=== PATIENT | female | born 1975 | race American Indian/Alaskan Native ===

== ENCOUNTER 2019-02-23 14:25 | Emergency (ER) | payer SELFPAY ==
--- NOTE | 2019-02-23 14:30 | Emergency Department Report ---
Blank Doc - Documentation Documentation: This is a 43-year-old female that presents with nausea vomiting and abdominal pain. This initial assessment/diagnostic orders/clinical plan/treatment(s) is/are subject to change based on patient's health status, clinical progression and re- assessment by fellow clinical providers in the ED. Further treatment and workup at subsequent clinical providers discretion. Patient/guardians urged not to elope from the ED as their condition may be serious if not clinically assessed and managed. Initial orders include: 1- Patient sent to [facility] for further evaluation and treatment 2- labs 3- UA
[2019-02-23 14:31] VITALS: BP 148/80
[2019-02-23 15:36] LABS: Basophils % (Auto) 0.8 % (0.0-1.8); Eosinophils # (Auto) 0.1 K/mm3 (0.0-0.4); Eosinophils % (Auto) 1.3 % (0.0-4.3); Hematocrit 43.8 % (30.3-42.9); Hemoglobin 14.7 gm/dl (10.1-14.3); Lymphocytes # (Auto) 1.7 K/mm3 (1.2-5.4); Lymphocytes % (Auto) 26.5 % (13.4-35.0); Mean Corpuscular HGB Conc 34 % (30-34); Mean Corpuscular Volume 94 fl (79-97); Monocytes # (Auto) 0.3 K/mm3 (0.0-0.8); Monocytes % (Auto) 5.5 % (0.0-7.3); Platelet Count 154 K/mm3 (140-440); Red Blood Count 4.69 M/mm3 (3.65-5.03); Red Cell Distribution Width 13.4 % (13.2-15.2)
[2019-02-23] MEDS ORDERED: ZOFRAN ODT PO ONE (15:39)
--- NOTE | 2019-02-23 15:42 | Emergency Department Report ---
HPI - General Chief Complaint: Abdominal Pain Time Seen by Provider: 02/23/19 14:29 - HPI HPI: Patient is a pleasant 43-year-old female who comes in with fatigue. She states it is been going on for months but it's just to the point that she wanted lanie koehler. Patient denies chest pain shortness of breath, nausea vomiting, diarrhea, constipation or fever. No swelling. There are no identifiable triggers that make her feel better or worse. Patient is well dressed here with family. She does not have a primary care. She lives in [facility] and usually sees the [facility] at [facility]. She is on no home medications. Has no medical pr Denies The only time the patient reports being sick is during her when she had high blood pressure and some heart problems. She cannot tell me the details of this for this was over 20 years ago. No Alcohol or drugs or cigarettes. Has had no surgeries. Patient is still having normal menses. ED Past Medical Hx - Past Medical History Previous Medical History?: No - Surgical History Past Surgical History?: No - Family History Family history: no significant - Social History Smoking Status: Never Smoker Substance Use Type: None ED Review of Systems ROS: Stated complaint: UPSET STOMACH/DIARRHEA Other details as noted in HPI Comment: All other systems reviewed and negative Constitutional: denies: chills, fever Cardiovascular: denies: chest pain Gastrointestinal: denies: nausea, vomiting Skin: denies: rash, lesions Neurological: denies: headache Psychiatric: denies: anxiety Hematological/Lymphatic: denies: easy bleeding Physical Exam - Physical Exam Vital Signs: Vital Signs 02/23/19 14:29 Temperature 97.9 F Pulse Rate 47 L Respiratory 18 Rate Blood Pressure 148/80 O2 Sat by Pulse 100 Oximetry General: Head Head exam: Present: atraumatic, normocephalic - Eye Eye exam: Present: normal appearance, EOMI. Absent: nystagmus - ENT ENT exam: Present: normal exam, normal orophraynx, mucous membranes moist, normal external ear exam, no lymphadenopathy - Neck Neck exam: Present: normal inspection, full ROM. Absent: tenderness, meningismus - Respiratory Respiratory exam: Present: normal lung sounds bilaterally. Absent: respiratory distress, wheezes, rales, rhonchi, stridor, chest wall tenderness, accessory muscle use, decreased breath sounds, prolonged expiratory - Cardiovascular Cardiovascular Exam: Present: regular rate, normal rhythm, normal heart sounds. Absent: bradycardia, tachycardia, irregular rhythm, systolic murmur, diastolic murmur, rubs, gallop, JVD, edema - GI/Abdominal GI/Abdominal exam: Present: soft, non tender on light and deep palpation. Absent: distended, tenderness, guarding, rebound, rigid, pulsatile mass - Rectal Rectal exam: Present: deferred - Extremities Exam Extremities exam: Present: normal inspection, full ROM, other (2+ pulses noted in the bilateral upper extremities. Bilateral lower extremities with 2+ DP bilateral. Full ROM. Absent: calf tenderness - Back Exam Back exam: Present: normal inspection, full ROM. Absent: tenderness, CVA tenderness (R), CVA tenderness (L), paraspinal tenderness, vertebral tenderness - Neurological Exam Neurological exam: Present: alert, oriented X3, normal gait, other (Extraocular movements intact. Tongue midline. No facial droop. Facial sensation intact to light touch in the V1, V2, V3 distribution bilaterally. 5 and 5 strength in 4 extremities.. Sensation is intact to light touch in 4 extremities.). Absent: motor sensory deficit - Psychiatric Psychiatric exam: normal affect and mood - Skin Skin exam: Present: warm, dry, intact, normal color. Absent: rash ED Course Vital Signs 02/23/19 14:29 Temperature 97.9 F Pulse Rate 47 L Respiratory 18 Rate Blood Pressure 148/80 O2 Sat by Pulse 100 Oximetry ED Medical Decision Making - Lab Data Result diagrams: 02/23/19 15:14 02/23/19 15:14 - EKG Data -: EKG Interpreted by Ms EKG shows normal: sinus rhythm Rate: bradycardia - EKG Data Interpretation: no acute changes - Medical Decision Making Vital Signs 02/23/19 14:29 Temperature 97.9 F Pulse Rate 47 L Respiratory 18 Rate Blood Pressure 148/80 O2 Sat by Pulse 100 Oximetry Lab Results 02/23/19 02/23/19 02/23/19 Range/Units 15:14 15:14 15:14 WBC 6.3 (4.5-11.0) K/mm3 RBC 4.69 (3.65-5.03) M/mm3 Hgb 14.7 H (10.1-14.3) gm/dl Hct 43.8 H (30.3-42.9) % MCV 94 (79-97) fl MCH 31 (28-32) pg MCHC 34 (30-34) % RDW 13.4 (13.2-15.2) % Plt Count 154 (140-440) K/mm3 Lymph % (Auto) 26.5 (13.4-35.0) % [place] % (Auto) 5.5 (0.0-7.3) % Eos % (Auto) 1.3 (0.0-4.3) % Baso % (Auto) 0.8 (0.0-1.8) % Lymph # 1.7 (1.2-5.4) K/mm3 [place] # 0.3 (0.0-0.8) K/mm3 Eos # 0.1 (0.0-0.4) K/mm3 Baso # 0.0 (0.0-0.1) K/mm3 Seg Neutrophils % 65.9 (40.0-70.0) % Seg Neutrophils # 4.2 (1.8-7.7) K/mm3 Sodium 140 (137-145) mmol/L Potassium 4.3 (3.6-5.0) mmol/L Chloride 103.0 (98-107) mmol/L Carbon Dioxide 25 (22-30) mmol/L Anion Gap 16 mmol/L BUN 7 (7-17) mg/dL Creatinine 0.6 L (0.7-1.2) mg/dL Estimated GFR > 60 ml/min BUN/Creatinine Ratio 12 % Glucose 103 H (65-100) mg/dL Calcium 9.7 (8.4-10.2) mg/dL Total Bilirubin 0.30 (0.1-1.2) mg/dL Direct Bilirubin Not Reportable Indirect Bilirubin 0.1 mg/dL AST 19 (5-40) units/L ALT 8 (7-56) units/L Alkaline Phosphatase 63 (35-129) units/L Troponin T (0.00-0.029) ng/mL Total Protein 7.6 (6.3-8.2) g/dL Albumin 4.5 (3.9-5) g/dL Albumin/Globulin Ratio 1.5 % Lipase 14 (13-60) units/L TSH (0.270-4.200) mlU/mL HCG, Qual Negative (Negative) Urine Color (Yellow) Urine Turbidity (Clear) Urine pH (5.0-7.0) Ur Specific [place] (1.003-1.030) Urine Protein (Negative) mg/dL Urine Glucose (UA) (Negative) mg/dL Urine Ketones (Negative) mg/dL Urine Blood (Negative) Urine Nitrite (Negative) Urine Bilirubin (Negative) Urine Urobilinogen (<2.0) mg/dL Ur Leukocyte Esterase (Negative) Urine WBC (Auto) (0.0-6.0) /HPF Urine RBC (Auto) (0.0-6.0) /HPF U Epithel Cells (Auto) (0-13.0) /HPF 02/23/19 02/23/19 02/23/19 Range/Units 16:11 16:11 Unknown WBC (4.5-11.0) K/mm3 RBC (3.65-5.03) M/mm3 Hgb (10.1-14.3) gm/dl Hct (30.3-42.9) % MCV (79-97) fl MCH (28-32) pg MCHC (30-34) % RDW (13.2-15.2) % Plt Count (140-440) K/mm3 Lymph % (Auto) (13.4-35.0) % [place] % (Auto) (0.0-7.3) % Eos % (Auto) (0.0-4.3) % Baso % (Auto) (0.0-1.8) % Lymph # (1.2-5.4) K/mm3 [place] # (0.0-0.8) K/mm3 Eos # (0.0-0.4) K/mm3 Baso # (0.0-0.1) K/mm3 Seg Neutrophils % (40.0-70.0) % Seg Neutrophils # (1.8-7.7) K/mm3 Sodium (137-145) mmol/L Potassium (3.6-5.0) mmol/L Chloride (98-107) mmol/L Carbon Dioxide (22-30) mmol/L Anion Gap mmol/L BUN (7-17) mg/dL Creatinine (0.7-1.2) mg/dL Estimated GFR ml/min BUN/Creatinine Ratio % Glucose (65-100) mg/dL Calcium (8.4-10.2) mg/dL Total Bilirubin (0.1-1.2) mg/dL Direct Bilirubin Indirect Bilirubin mg/dL AST (5-40) units/L ALT (7-56) units/L Alkaline Phosphatase (35-129) units/L Troponin T < 0.010 (0.00-0.029) ng/mL Total Protein (6.3-8.2) g/dL Albumin (3.9-5) g/dL Albumin/Globulin Ratio % Lipase (13-60) units/L TSH 1.720 (0.270-4.200) mlU/mL HCG, Qual (Negative) Urine Color Straw (Yellow) Urine Turbidity Clear (Clear) Urine pH 6.0 (5.0-7.0) Ur Specific [place] 1.004 (1.003-1.030) Urine Protein <15 mg/dl (Negative) mg/dL Urine Glucose (UA) Neg (Negative) mg/dL Urine Ketones Neg (Negative) mg/dL Urine Blood Sm (Negative) Urine Nitrite Neg (Negative) Urine Bilirubin Neg (Negative) Urine Urobilinogen < 2.0 (<2.0) mg/dL Ur Leukocyte Esterase Neg (Negative) Urine WBC (Auto) 1.0 (0.0-6.0) /HPF Urine RBC (Auto) 1.0 (0.0-6.0) /HPF U Epithel Cells (Auto) 2.0 (0-13.0) /HPF I myself checked the patient's heart rate on numerous occasions and it has been in the 50s during her stay here in the ER. TSH is normal. Twelve-lead EKG with no acute changes. Patient denies any chest pain or shortness of breath. She is still having regular. She has no family history of heart disease. Other labs are all normal including her UA. I've had a long discussion with the patient about the findings of her workup today. In the context of her fatigue I cannot say that it is not related to her heart rate. Patient does have an appointment already set up in the pot at [facility]. She is to call them in the morning to see if they can move her appointment up for it is mid February. Patient is being discharged home with detailed instructions. She is going home with a family member. She is reliable for follow-up. She has been instructed to return to the ER if has worsening symptoms. On discharge and provider assessment heart rate 55 and patient states that she feels better knowing that there is nothing seriously wrong. - Differential Diagnosis ro anemia; ro fatiuge due to bradycardia; ro uti; ro preg Critical care attestation.: If time is entered above; I have spent that time in minutes in the direct care of this critically ill patient, excluding procedure time. ED Disposition Clinical Impression: Bradycardia, Fatigue Disposition: DC- TO HOME OR SELFCARE Is pt being admited?: No Does the pt Need Aspirin: No Condition: Stable Instructions: Bradycardia (ED) Additional Instructions: FOLLOW UP AT [facility] WE DISCUSSED Referrals: KATHLEEN HUDSON MD [Primary Care Provider] - 3-5 Days [facility] [Outside] - 3-5 Days Forms: Work/School Release Form(ED) Time of Disposition: 18:00
[2019-02-23 15:47] LABS: Bilirubin,Urine NEG (Negative); Blood,Urine SM (Negative); Color,Urine Straw (Yellow); Protein,Urine <15 mg/dL mg/dL (Negative); Urobilinogen,Urine < 2.0 mg/dL (<2.0)
[2019-02-23 15:55] LABS: BUN/Creatinine Ratio 12; Blood Urea Nitrogen 7 mg/dL (7-17); Calcium 9.7 mg/dL (8.4-10.2)
[2019-02-23 15:56] LABS: Alanine Aminotransferase 8 units/L (7-56); Albumin 4.5 g/dL (3.9-5); Hemolysis Index 7
== END 2019-02-23 18:17 | disposition home or self-care (01) ==
LOC: ED 14:25
DX: R00.1 Bradycardia, unspecified (principal)
CPT/HCPCS: 36415; 80048; 80076; 81001; 83690; 84443; 84484; 84703; 85025; 93005; 93010; 99283; Q0162

== ENCOUNTER 2019-02-26 14:07 | Emergency (ER) | payer OTHER ==
--- NOTE | 2019-02-26 15:26 | Emergency Department Report ---
Blank Doc - Documentation Documentation: 43 y o female presents to Ed cc of chest pain and dizziness x today
[2019-02-26 15:51] LABS: Basophils # (Auto) 0.1 K/mm3 (0.0-0.1); Basophils % (Auto) 1.1 % (0.0-1.8); Eosinophils # (Auto) 0.3 K/mm3 (0.0-0.4); Eosinophils % (Auto) 4.5 % (0.0-4.3); Hematocrit 44.1 % (30.3-42.9); Hemoglobin 15.1 gm/dl (10.1-14.3); Lymphocytes % (Auto) 33.7 % (13.4-35.0); Mean Corpuscular HGB Conc 34 % (30-34); Mean Corpuscular Volume 93 fl (79-97); Monocytes # (Auto) 0.3 K/mm3 (0.0-0.8); Monocytes % (Auto) 5.8 % (0.0-7.3); Platelet Count 164 K/mm3 (140-440); Red Blood Count 4.74 M/mm3 (3.65-5.03); Red Cell Distribution Width 13.6 % (13.2-15.2)
[2019-02-26 16:12] LABS: BUN/Creatinine Ratio 12; Blood Urea Nitrogen 7 mg/dL (7-17); Calcium 9.8 mg/dL (8.4-10.2); Hemolysis Index 7
--- NOTE | 2019-02-26 16:19 | Emergency Department Report ---
ED Chest Pain HPI - General Chief Complaint: Chest Pain Stated Complaint: DISORIENTED Time Seen by Provider: 02/26/19 14:40 Source: patient Mode of arrival: Ambulatory Limitations: No Limitations - History of Present Illness Initial Comments: Patient is 43 years old female with no significant past medical history. Patient presented to the ER complaining of chest pain, tightness with no radiation. Patient stated that just started 2 hours ago and associated with dizziness. Patient denied any shortness of breath, nausea or vomiting. No fever chills or cough. Patient was seen here one week ago and evaluated for abdominal pain and workup was unremarkable. MD Complaint: chest pain -: hour(s) Onset: during rest Pain Location: left chest Quality: tightness Consistency: intermittent - Related Data Allergies Allergy/AdvReac Type Severity Reaction Status Date / Time No Known Allergies Allergy Verified 02/26/19 14:08 Heart Score - HEART Score History: Slightly suspicious EKG: Non-specific Age: < 45 Risk factors: No known risk factors Troponin: < normal limit HEART Score: 1 - Critical Actions Critical Actions: 0-3 pts:0.9-1.7%risk of adverse cardiac event.Candidate for discharge ED Review of Systems ROS: Stated complaint: DISORIENTED Other details as noted in HPI Comment: All other systems reviewed and negative Constitutional: denies: chills, fever Respiratory: denies: cough, orthopnea Cardiovascular: chest pain Gastrointestinal: denies: abdominal pain, nausea, vomiting, diarrhea, constipation, hematemesis, melena, hematochezia Musculoskeletal: denies: back pain Neurological: weakness (generalized). denies: headache, numbness, paresthesias, confusion ED Past Medical Hx - Past Medical History Previous Medical History?: No - Surgical History Past Surgical History?: No - Social History Smoking Status: Never Smoker Substance Use Type: None ED Physical Exam - General Limitations: No Limitations General appearance: alert, in no apparent distress - Head Head exam: Present: atraumatic, normocephalic, normal inspection - Eye Eye exam: Present: normal appearance, PERRL - ENT ENT exam: Present: normal exam, normal orophraynx, mucous membranes moist - Neck Neck exam: Present: normal inspection, full ROM. Absent: tenderness, meningismus, lymphadenopathy, thyromegaly - Respiratory Respiratory exam: Present: normal lung sounds bilaterally - Cardiovascular Cardiovascular Exam: Present: regular rate, bradycardia, normal heart sounds - GI/Abdominal GI/Abdominal exam: Present: soft, normal bowel sounds. Absent: distended, tenderness, guarding, rebound, rigid, organomegaly, mass, bruit, pulsatile mass, hernia - Extremities Exam Extremities exam: Present: normal inspection, full ROM, normal capillary refill. Absent: pedal edema, calf tenderness - Back Exam Back exam: Present: normal inspection, full ROM. Absent: CVA tenderness (R), CVA tenderness (L), muscle spasm, paraspinal tenderness, vertebral tenderness - Neurological Exam Neurological exam: Present: alert, oriented X3, CN II-XII intact, normal gait, reflexes normal - Skin Skin exam: Present: warm, intact, normal color ED Course Vital Signs 02/26/19 02/26/19 02/26/19 14:42 16:18 16:19 Temperature 97.9 F 98.0 F Pulse Rate 60 54 L Respiratory 18 15 16 Rate Blood Pressure 121/83 Blood Pressure 103/76 [Left] O2 Sat by Pulse 98 98 98 Oximetry 02/26/19 02/26/19 18:00 20:19 Temperature Pulse Rate 52 L 53 L Respiratory 14 17 Rate Blood Pressure Blood Pressure 114/56 114/58 [Left] O2 Sat by Pulse 100 99 Oximetry ED Medical Decision Making - Lab Data Result diagrams: 02/26/19 15:33 02/26/19 15:33 - EKG Data -: EKG Interpreted by [place] EKG shows normal: sinus rhythm Rate: bradycardia - EKG Data Interpretation: no acute changes - Radiology Data Radiology results: report reviewed Chest x-ray is unremarkable. - Medical Decision Making Patient is 43 years old female with no significant past medical history. Patient presented to the ER complaining of chest pain, tightness with no radiation. Patient stated that just started 2 hours ago and associated with dizziness. Patient denied any shortness of breath, nausea or vomiting. No fever chills or cough. Patient was seen here one week ago and evaluated for abdominal pain and workup was unremarkable. Patient EKG showed sinus bradycardia. No ST elevation. Chest x-ray is unremarkable. 2 sets of troponin is negative. Patient improved significantly after fluids. Patient advised to follow-up with [facility] due to 3 days for further workup. She'll also advised to return to the ER if symptoms are not improved. Critical care attestation.: If time is entered above; I have spent that time in minutes in the direct care of this critically ill patient, excluding procedure time. ED Disposition Clinical Impression: Bradycardia, Chest pain Disposition: DC-01 TO HOME OR SELFCARE Is pt being admited?: No Condition: Stable Instructions: Chest Pain (ED), Bradycardia (ED) [facility] - 3-5 Days
[2019-02-26] MEDS ORDERED: NACL 0.9% 1000 ML 1,000 ML ONE (16:33)
--- NOTE | 2019-02-26 16:36 | XRay Report ---
PROCEDURE: XR CHEST ROUTINE 2V TECHNIQUE: PA and lateral chest radiographs were obtained. HISTORY: Chest Pain COMPARISONS: None. FINDINGS: Heart: Normal. Mediastinum/Vessels: Normal. Lungs/Pleural space: Normal. Bony thorax: No acute osseous abnormality. IMPRESSION: Normal examination. This document is electronically signed by Jono Gatica MD., February 26 2019 05:34:50 PM ET
[2019-02-26] MEDS ORDERED: NACL 0.9% 1000 ML 1,000 ML IV ONE (16:41)
[2019-02-26 16:58] LABS: Amphetamine Screen,Urine PRESUMPTIVE NEGATIVE; Benzodiazepines Screen,Urine PRESUMPTIVE NEGATIVE; Cocaine Screen,Urine PRESUMPTIVE NEGATIVE; Methadone Screen,Urine PRESUMPTIVE NEGATIVE; Opiate Screen,Urine PRESUMPTIVE NEGATIVE
[2019-02-26 17:15] LABS: Cannabinoid Screen,Urine PRESUMPTIVE POSITIVE
[2019-02-26 20:20] VITALS: BP 114/58
== END 2019-02-26 20:19 | disposition home or self-care (01) ==
LOC: ED 14:07
DX: R07.89 Other chest pain (principal); R00.1 Bradycardia, unspecified; R42 Dizziness and giddiness
CPT/HCPCS: 36415; 71046; 80048; 80307; 84484; 84703; 85025; 93005; 93010; 96360; 96361; 99283; J7030

== ENCOUNTER 2019-03-16 09:49 | Emergency (ER) | payer SELFPAY ==
[2019-03-16] MEDS ORDERED: NACL 0.9% 1000 ML 1,000 ML IV ONE (10:07)
[2019-03-16] MEDS ORDERED: ZOFRAN ODT PO ONE (10:07)
[2019-03-16] MEDS ORDERED: ZOFRAN ODT ONE (10:10)
[2019-03-16 10:11] LABS: Basophils # (Auto) 0.1 K/mm3 (0.0-0.1); Basophils % (Auto) 0.9 % (0.0-1.8); Eosinophils # (Auto) 0.1 K/mm3 (0.0-0.4); Eosinophils % (Auto) 0.8 % (0.0-4.3); Hematocrit 44.9 % (30.3-42.9); Hemoglobin 15.6 gm/dl (10.1-14.3); Mean Corpuscular HGB Conc 35 % (30-34); Mean Corpuscular Volume 92 fl (79-97); Monocytes # (Auto) 0.6 K/mm3 (0.0-0.8); Monocytes % (Auto) 6.2 % (0.0-7.3); Platelet Count 185 K/mm3 (140-440); Red Blood Count 4.89 M/mm3 (3.65-5.03); Red Cell Distribution Width 13.6 % (13.2-15.2)
[2019-03-16] MEDS ORDERED: ZOFRAN IV ONE (10:19)
[2019-03-16] MEDS ORDERED: DILAUDID IV ONE (10:19)
--- NOTE | 2019-03-16 10:22 | Emergency Department Report ---
ED Abdominal Pain HPI - General Chief Complaint: Abdominal Pain Stated Complaint: ABDOMINAL PAIN Time Seen by Provider: 03/16/19 10:19 Source: patient Mode of arrival: Ambulatory Limitations: No Limitations - History of Present Illness Initial Comments: This is a 43-year-old -[place] female who presents to the ED with severe periumbilical abdominal pain, 9 out of 10, sharp, without radiation. Symptoms started this morning and is accompanied by nausea and vomiting. Denies any fever, chills or night sweats. Patient has not taking any medications for her symptoms. Denies any prior episodes of such symptoms. Denies any alleviating or exacerbating factors. MD Complaint: abdominal pain -: Sudden Time: 07:00 Location: diffuse Radiation: none Migration to: no migration Severity scale (0 -10): 10 Quality: stabbing Consistency: constant Improves With: nothing Worsens With: nothing Associated Symptoms: nausea, vomiting, diarrhea. denies: fever - Related Data LMP Date: 02/22/19 Home Medications Medication Instructions Recorded Confirmed Last Taken No Known Home Medications [No 03/16/19 03/16/19 Unknown Reported Home Medications] Allergies Allergy/AdvReac Type Severity Reaction Status Date / Time No Known Allergies Allergy Verified 03/16/19 09:50 ED Review of Systems ROS: Stated complaint: ABDOMINAL PAIN Other details as noted in HPI Comment: All other systems reviewed and negative Constitutional: denies: chills ENT: denies: ear pain Cardiovascular: denies: chest pain Gastrointestinal: abdominal pain, nausea, vomiting Genitourinary: denies: urgency ED Past Medical Hx - Past Medical History Previous Medical History?: No - Surgical History Past Surgical History?: No - Family History Family history: hypertension - Social History Smoking Status: Never Smoker Substance Use Type: None - Medications Home Medications: Home Medications Medication Instructions Recorded Confirmed Last Taken Type No Known Home Medications [No 03/16/19 03/16/19 Unknown History Reported Home Medications] ED Physical Exam - General Limitations: No Limitations General appearance: alert, in no apparent distress - Head Head exam: Present: atraumatic, normocephalic - Eye Eye exam: Present: normal appearance, PERRL, EOMI - ENT ENT exam: Present: normal exam, normal orophraynx - Neck Neck exam: Present: normal inspection - Respiratory Respiratory exam: Present: normal lung sounds bilaterally - Cardiovascular Cardiovascular Exam: Present: regular rate, normal rhythm - GI/Abdominal GI/Abdominal exam: Present: soft, tenderness (periumbilical) - Rectal Rectal exam: Present: deferred - Extremities Exam Extremities exam: Present: normal inspection ED Course Vital Signs 03/16/19 03/16/19 03/16/19 09:51 10:20 10:30 Temperature 98.1 F Pulse Rate 70 56 L 53 L Respiratory 38 H 17 25 H Rate Blood Pressure 161/90 155/90 O2 Sat by Pulse 100 100 100 Oximetry 03/16/19 03/16/19 03/16/19 11:00 11:30 12:00 Temperature Pulse Rate 44 L 46 L 43 L Respiratory 12 14 11 L Rate Blood Pressure 165/87 176/89 170/84 O2 Sat by Pulse 100 100 Oximetry 03/16/19 03/16/19 03/16/19 12:30 13:00 13:30 Temperature Pulse Rate 38 L 54 L 56 L Respiratory 11 L 12 Rate Blood Pressure 151/80 170/84 150/91 O2 Sat by Pulse 99 Oximetry 03/16/19 14:06 Temperature Pulse Rate 54 L Respiratory Rate Blood Pressure 132/78 O2 Sat by Pulse 100 Oximetry - Reevaluation(s) Reevaluation #1: 03/16/19 14:05 After Dilaudid and Zofran much improvement. ED Medical Decision Making - Lab Data Result diagrams: 03/16/19 09:54 03/16/19 09:54 - Medical Decision Making This is a 43-year-old -[place] female who presents to the ED with severe periumbilical abdominal pain, 9 out of 10, sharp, without radiation. Symptoms started this morning and is accompanied by nausea and vomiting. Denies any fever, chills or night sweats. Patient has not taking any medications for her symptoms. Denies any prior episodes of such symptoms. Denies any alleviating or exacerbating factors. Patient was participates in the ED bed 8, she received Dilaudid 1 mg IV, Zofran 4 mg IV, normal saline 1. With much improvement of his symptoms. CBC and chemistry were essentially normal. Patient refused CT, abdominal x-ray, did not show any acute abnormalities. Upon reexamination after observation for while in the ED, she was pain-free, was sleeping, when her son at her bedside, requesting to go home. Next She was advised to follow-up with her PCP, return to ED if symptoms worsen. She was told to return the ED U she became febrile, and she had hematemesis, melena or hematochezia. Critical care attestation.: If time is entered above; I have spent that time in minutes in the direct care of this critically ill patient, excluding procedure time. ED Disposition Clinical Impression: Abdominal pain Qualifiers: Abdominal location: generalized Qualified Code(s): R10.84 - Generalized abdominal pain Disposition: TO HOME OR SELFCARE Is pt being admited?: No Does the pt Need Aspirin: No Condition: Stable Instructions: Abdominal Pain (ED) Referrals: KATHLEEN HUDSON MD [Primary Care Provider] - 3-5 Days
[2019-03-16 10:26] LABS: Alanine Aminotransferase 8 units/L (7-56); Albumin 4.6 g/dL (3.9-5); BUN/Creatinine Ratio 9; Blood Urea Nitrogen 7 mg/dL (7-17); Calcium 10.1 mg/dL (8.4-10.2); Hemolysis Index 34
[2019-03-16 10:59] LABS: Partial Thromboplastin Time 29.5 Sec. (24.2-36.6)
[2019-03-16 13:27] LABS: Bilirubin,Urine NEG (Negative); Blood,Urine NEG (Negative); Color,Urine Yellow (Yellow); Mucus,Urine 3+ /HPF; Urobilinogen,Urine < 2.0 mg/dL (<2.0)
[2019-03-16 13:37] LABS: HCG Qualitative,Urine Negative (Negative)
--- NOTE | 2019-03-16 14:08 | XRay Report ---
AP CHEST : 03/16/19 09:49:00 CLINICAL: Pain. COMPARISON:02/26/19 FINDINGS: Normal heart and pulmonary vessels. The lungs are normally expanded and clear. The bones and soft tissues are normal. IMPRESSION: Normal chest.
--- NOTE | 2019-03-16 15:12 | XRay Report ---
Single view abdomen: History: Pain. Findings: Few loops of small and large bowel are identified. No radiopaque calculus or abnormal calcification Impression: Nonspecific findings. No definite evidence of bowel obstruction.
[2019-03-16 16:07] VITALS: BP 109/65
== END 2019-03-16 17:15 | disposition home or self-care (01) ==
LOC: ED 09:49
DX: R10.84 Generalized abdominal pain (principal)
CPT/HCPCS: 36415; 71045; 74018; 80053; 81001; 81025; 83690; 84703; 85025; 85610; 85730; 96361; 96374; 96375; 99284; J1170; J2405; J7030; Q0162

== ENCOUNTER 2019-03-18 11:17 | Inpatient (IN) | payer OTHER ==
[2019-03-18] MEDS ORDERED: ZOFRAN ODT PO ONE (11:22)
--- NOTE | 2019-03-18 11:25 | Event Note ---
ED Screening Note ED Screening Note: 4rth visit in 1 m for same all labs normal lft n lipase n xray n thc pos writhing in triage co gen abd pain pmh none rx muscle relaxer given the other day only psh none This initial assessment/diagnostic orders/clinical plan/treatment(s) is/are subject to change based on patients health status, clinical progression and re- assessment by fellow clinical providers in the ED. Further treatment and workup at subsequent clinical providers discretion. Patient/guardian urged not to elope from the ED as their condition may be serious if not clinically assessed and managed. Initial orders include:
[2019-03-18] MEDS ORDERED: TORADOL IV ONE (11:38)
[2019-03-18] MEDS ORDERED: BENADRYL IV ONE ×2 (11:38→15:17)
[2019-03-18] MEDS ORDERED: REGLAN IV ONE (11:38)
[2019-03-18 11:40] LABS: Hematocrit 42.9 % (30.3-42.9); Hemoglobin 14.8 gm/dl (10.1-14.3); Mean Corpuscular HGB Conc 35 % (30-34); Mean Corpuscular Volume 92 fl (79-97); Platelet Count 159 K/mm3 (140-440); Red Blood Count 4.64 M/mm3 (3.65-5.03); Red Cell Distribution Width 13.1 % (13.2-15.2)
[2019-03-18] MEDS ORDERED: NACL 0.9% 1000 ML 1,000 ML IV ONE (11:41)
--- NOTE | 2019-03-18 11:42 | Emergency Department Report ---
ED Abdominal Pain HPI - General Chief Complaint: Abdominal Pain Stated Complaint: ABDOMINAL PAIN Time Seen by Provider: 03/18/19 11:19 Source: patient Mode of arrival: Ambulatory Limitations: No Limitations - History of Present Illness Initial Comments: Patient is 43 years old female with no significant past medical history. Patient presented to the ER complaining of nausea, vomiting and watery diarrhea for the last 4 days. She denied any fever or chills. No chest pain or shortness of breath. MD Complaint: abdominal pain Location: diffuse Migration to: no migration Quality: cramping Consistency: constant - Related Data Previous Rx's Medication Instructions Recorded Last Taken Type Dicyclomine [Bentyl] 20 mg PO QID #30 bottle 03/16/19 Unknown Rx Allergies Allergy/AdvReac Type Severity Reaction Status Date / Time No Known Allergies Allergy Verified 03/18/19 11:18 ED Review of Systems ROS: Stated complaint: ABDOMINAL PAIN Other details as noted in HPI Comment: All other systems reviewed and negative Constitutional: denies: chills, fever Respiratory: denies: cough, orthopnea, shortness of breath, SOB with exertion, SOB at rest, wheezing Cardiovascular: denies: chest pain, palpitations Gastrointestinal: abdominal pain, nausea, vomiting, diarrhea Musculoskeletal: denies: back pain Neurological: denies: headache, weakness, numbness, paresthesias, confusion ED Past Medical Hx - Past Medical History Previous Medical History?: No - Surgical History Past Surgical History?: No - Social History Smoking Status: Never Smoker Substance Use Type: None - Medications Home Medications: Home Medications Medication Instructions Recorded Confirmed Last Taken Type Dicyclomine [Bentyl] 20 mg PO QID #30 bottle 03/16/19 Unknown Rx ED Physical Exam - General Limitations: No Limitations General appearance: alert, in no apparent distress - Head Head exam: Present: atraumatic, normocephalic, normal inspection - Eye Eye exam: Present: normal appearance, PERRL - ENT ENT exam: Present: mucous membranes dry - Neck Neck exam: Present: normal inspection, full ROM. Absent: tenderness, meningismus, lymphadenopathy, thyromegaly - Respiratory Respiratory exam: Present: normal lung sounds bilaterally - Cardiovascular Cardiovascular Exam: Present: regular rate, normal rhythm, normal heart sounds - GI/Abdominal GI/Abdominal exam: Present: soft, normal bowel sounds. Absent: distended, tenderness, guarding, rebound, rigid, organomegaly, mass, bruit, pulsatile mass, hernia - Extremities Exam Extremities exam: Present: normal inspection, full ROM, normal capillary refill. Absent: pedal edema, calf tenderness - Back Exam Back exam: Present: normal inspection, full ROM. Absent: CVA tenderness (R), CVA tenderness (L), muscle spasm, paraspinal tenderness, vertebral tenderness - Neurological Exam Neurological exam: Present: alert, oriented X3, CN II-XII intact, normal gait, reflexes normal - Skin Skin exam: Present: warm, intact, normal color ED Course Vital Signs 03/18/19 03/18/19 03/18/19 11: 16:13 16:29 Temperature 98.3 F 98.9 F Pulse Rate 57 L 46 L Respiratory 18 18 14 Rate Blood Pressure 165/82 Blood Pressure 149/95 [Left] O2 Sat by Pulse 100 100 100 Oximetry ED Medical Decision Making - Lab Data Result diagrams: 03/18/19 11:25 03/18/19 11:25 - Radiology Data Radiology results: report reviewed - Medical Decision Making Patient is 43 years old female with no significant past medical history. Patient presented to the ER complaining of nausea, vomiting and watery diarrhea for the last 4 days. She denied any fever or chills. No chest pain or shortness of breath. Patient received multiple antimotility medication including Zofran and Reglan and Benadryl. Patient found to have intractable nausea and vomiting. Patient does have colitis on CT abdomen and pelvis. Patient received Zosyn. I discussed the patient with Dr. Gu, he agreed to admit the patient to medical service. Critical care attestation.: If time is entered above; I have spent that time in minutes in the direct care of this critically ill patient, excluding procedure time. ED Disposition Clinical Impression: Abdominal pain, Intractable vomiting with nausea Disposition: OP ADMIT IP TO THIS HOSP Is pt being admited?: Yes Condition: Stable Instructions: Abdominal Pain (ED)
[2019-03-18 11:45] LABS: Bacteria,Urine 1+ /HPF (Negative); Bilirubin,Urine NEG (Negative); Blood,Urine SM (Negative); Color,Urine Yellow (Yellow); Mucus,Urine FEW /HPF; Urobilinogen,Urine < 2.0 mg/dL (<2.0)
[2019-03-18 11:53] LABS: HCG Qualitative,Urine Negative (Negative)
[2019-03-18 11:59] LABS: BUN/Creatinine Ratio 4; Blood Urea Nitrogen 3 mg/dL (7-17); Calcium 9.5 mg/dL (8.4-10.2); Hemolysis Index 20
[2019-03-18] MEDS ORDERED: PROTONIX IV ONE (12:03)
[2019-03-18 12:51] LABS: Alanine Aminotransferase 8 units/L (7-56); Albumin 4.6 g/dL (3.9-5)
[2019-03-18] MEDS ORDERED: BENTYL IM ONE (13:02)
[2019-03-18 13:27] LABS: Bilirubin,Direct < 0.2 mg/dL (0-0.2)
[2019-03-18] MEDS ORDERED: ZOFRAN ONE (13:59)
[2019-03-18] MEDS ORDERED: ALUM-MAG HYDROX-SIMETH 200-200-20MG/5ML PO ONE (14:20)
[2019-03-18] MEDS ORDERED: LIDOCAINE VISCOUS 2% PO ONE (14:20)
--- NOTE | 2019-03-18 15:00 | Cat Scan Report ---
CT ABDOMEN PELVIS WITH CONTRAST: HISTORY: abdominal pain. COMPARISON: none. TECHNIQUE: Helical CT in 1.25mm intervals following IV contrast. Sagittal and coronal reconstructions. FINDINGS: Lung bases: Normal. Liver: Normal. Biliary system: Normal. Pancreas: Normal. Spleen: Normal. Kidneys/ureters/bladder: Normal. Adrenal glands: Normal. Aorta: Normal. Intestines: No oral contrast was administered which limits this exam. There is suggestion of mild diffuse thickening of the colon which could represent a nonspecific colitis. The remaining bowel loops are unremarkable. Appendix: Not confidently identified. Pelvic viscera: Normal. Ascites: None. Adenopathy: None. Musculoskeletal: Normal. IMPRESSION: Findings suggestive of a nonspecific colitis.
[2019-03-18] MEDS ORDERED: MORPHINE IV ONE (15:17)
[2019-03-18] MEDS ORDERED: ZOSYN/NS 3.375GM/50ML 3.375 GM/50 ML BAG IV ONE (15:19)
[2019-03-18] MEDS: DILAUDID IV PRN ×2 (18:18→20:53)
--- NOTE | 2019-03-18 18:25 | History and Physical Report ---
History of Present Illness Date of examination: 03/18/19 Date of admission: 03/18/19 16:11 Chief complaint: VOmiting and Diarrhea 4 days History of present illness: Patient is 43 years old female with no significant past medical history presented to the ER complaining of nausea, vomiting and watery diarrhea for the last 4 days. She denied any fever or chills. No chest pain or shortness of breath.Feels weak and dehydrated.No fever or chills.First episode. Past Medical History Previous Medical History?: No Surgical History Past Surgical History?: No Social History Smoking Status: Never Smoker Substance Use Type: None FH None - Medications Home Medications: Home Medications Medication Instructions Recorded Confirmed Last Taken Type Dicyclomine [Bentyl] 20 mg PO QID #30 bottle 03/16/19 Unknown Rx Review of Systems ROS: Stated complaint: ABDOMINAL PAIN Other details as noted in HPI Comment: All other systems reviewed and negative Constitutional: denies: chills, fever Respiratory: denies: cough, orthopnea, shortness of breath, SOB with exertion, SOB at rest, wheezing Cardiovascular: denies: chest pain, palpitations Gastrointestinal: abdominal pain, nausea, vomiting, diarrhea Musculoskeletal: denies: back pain Neurological: denies: headache, weakness, numbness, paresthesias, confusion Medications and Allergies Allergies Allergy/AdvReac Type Severity Reaction Status Date / Time No Known Allergies Allergy Verified 03/18/19 11:18 Home Medications Medication Instructions Recorded Confirmed Last Taken Type Dicyclomine [Bentyl] 20 mg PO QID #30 bottle 03/16/19 Unknown Rx Exam - Constitutional Vitals: Temp Pulse Resp BP Pulse Ox 98.9 F 46 L 14 149/95 100 03/18/19 16:29 03/18/19 16:29 03/18/19 16:29 03/18/19 16:29 03/18/19 16:29 General appearance: Present: no acute distress, well-nourished - EENT Eyes: Present: PERRL ENT: hearing intact, clear oral mucosa, other (Tongue dry) - Neck Neck: Present: supple, normal ROM - Respiratory Respiratory effort: normal Respiratory: bilateral: CTA - Cardiovascular Heart rate: 100 Rhythm: regular Heart Sounds: Present: S1 & S2. Absent: rub, click - Extremities Extremities: no ischemia, pulses intact, pulses symmetrical, No edema Peripheral Pulses: within normal limits - Abdominal General gastrointestinal: Present: soft, tender, non-distended, normal bowel sounds Localized gastrointestinal: tender: diffuse Female genitourinary: Present: normal - Rectal Rectal Exam: deferred - Integumentary Integumentary: Present: clear, warm, dry - Musculoskeletal Musculoskeletal: gait normal, strength equal bilaterally - Psychiatric Psychiatric: appropriate mood/affect, intact judgment & insight - Neurologic Neurologic: CNII-XII intact, moves all extremities - Allied Health Allied health notes reviewed: nursing, case management Results - Labs CBC & Chem 7: 03/18/19 11:25 03/18/19 11:25 Labs: Laboratory Last Values WBC 7.7 K/mm3 (4.5-11.0) 03/18/19 11:25 RBC 4.64 M/mm3 (3.65-5.03) 03/18/19 11:25 Hgb 14.8 gm/dl (10.1-14.3) H 03/18/19 11:25 Hct 42.9 % (30.3-42.9) 03/18/19 11:25 MCV 92 fl (79-97) 03/18/19 11:25 MCH 32 pg (28-32) 03/18/19 11:25 MCHC 35 % (30-34) H 03/18/19 11:25 RDW 13.1 % (13.2-15.2) L 03/18/19 11:25 Plt Count 159 K/mm3 (140-440) 03/18/19 11:25 Sodium 139 mmol/L (137-145) 03/18/19 11:25 Potassium 3.6 mmol/L (3.6-5.0) 03/18/19 11:25 Chloride 98.4 mmol/L (98-107) 03/18/19 11:25 Carbon Dioxide 26 mmol/L (22-30) 03/18/19 11:25 18 mmol/L 03/18/19 11:25 BUN 3 mg/dL (7-17) L 03/18/19 11:25 0.7 mg/dL (0.7-1.2) 03/18/19 11:25 Estimated GFR > 60 ml/min 03/18/19 11:25 4 % 03/18/19 11:25 Glucose 118 mg/dL (65-100) H 03/18/19 11:25 Calcium 9.5 mg/dL (8.4-10.2) 03/18/19 11:25 0.40 mg/dL (0.1-1.2) 03/18/19 11:25 < 0.2 mg/dL (0-0.2) 03/18/19 11:25 0.2 mg/dL 03/18/19 11:25 AST 18 units/L (5-40) 03/18/19 11:25 ALT 8 units/L (7-56) 03/18/19 11:25 70 units/L (35-129) 03/18/19 11:25 7.9 g/dL (6.3-8.2) 03/18/19 11:25 4.6 g/dL (3.9-5) 03/18/19 11:25 1.4 % 03/18/19 11:25 15 units/L (13-60) 03/18/19 11:25 Yellow (Yellow) 03/18/19 11:26 Cloudy (Clear) 03/18/19 11:26 5.0 (5.0-7.0) 03/18/19 11:26 Ur Specific [place] 1.009 (1.003-1.030) 03/18/19 11:26 100 mg/dl mg/dL (Negative) 03/18/19 11:26 Neg mg/dL (Negative) 03/18/19 11:26 Neg mg/dL (Negative) 03/18/19 11:26 Sm (Negative) 03/18/19 11:26 Neg (Negative) 03/18/19 11:26 Neg (Negative) 03/18/19 11:26 < 2.0 mg/dL (<2.0) 03/18/19 11:26 Ur Leukocyte Esterase Neg (Negative) 03/18/19 11:26 5.0 /HPF (0.0-6.0) 03/18/19 11:26 8.0 /HPF (0.0-6.0) 03/18/19 11:26 U Epithel Cells (Auto) 25.0 /HPF (0-13.0) H 03/18/19 11:26 1+ /HPF (Negative) 03/18/19 11:26 Few /HPF 06/21/19 11:26 Urine HCG, Qual Negative (Negative) 03/18/19 11:26 - Imaging and Cardiology Imaging and Cardiology: CT abdomen IMPRESSION: Findings suggestive of a nonspecific colitis. Assessment and Plan Advance Directives: Yes (Full code) VTE prophylaxis?: Chemical Plan of care discussed with patient/family: Yes - Patient Problems (1) Colitis Current Visit: Yes Status: Acute Plan to address problem: Non specific Probably viral IV fluids and Symptomatic treatment GI consult if necessary (2) Intractable vomiting with nausea Current Visit: Yes Status: Acute Qualifiers: Vomiting type: unspecified Qualified Code(s): R11.2 - Nausea with vomiting, unspecified Plan to address problem: Probably viral IV fluids and symptomatic treatment Stool cultures to be sent when collected (3) Dehydration Current Visit: Yes Status: Acute Plan to address problem: IV fluids (4) DVT prophylaxis Current Visit: Yes Status: Acute Plan to address problem: On Lovenox and GI prophylaxis
[2019-03-18] MEDS ORDERED: TYLENOL PO PRN (18:29)
[2019-03-18] MEDS ORDERED: SODIUM CHLORIDE FLUSH SYRINGE 10 ML IV PRN (18:29)
[2019-03-18] MEDS ORDERED: REGLAN IV PRN (18:29)
[2019-03-18] MEDS ORDERED: ZOFRAN IV PRN (18:29)
[2019-03-18] MEDS ORDERED: DILAUDID ONE (20:21)
[2019-03-18] MEDS: SODIUM CHLORIDE FLUSH SYRINGE 10 ML IV SCH (22:44)
[2019-03-18] MEDS: PEPCID IV SCH (22:44)
[2019-03-18] MEDS: D5NS 1,000 ML IV SCH (22:44)
[2019-03-19] MEDS: D5NS 1,000 ML IV SCH (07:35)
[2019-03-19 07:53] LABS: Basophils % (Auto) 0.4 % (0.0-1.8); Eosinophils # (Auto) 0.1 K/mm3 (0.0-0.4); Eosinophils % (Auto) 1.2 % (0.0-4.3); Hematocrit 38.6 % (30.3-42.9); Hemoglobin 13.4 gm/dl (10.1-14.3); Lymphocytes # (Auto) 2.6 K/mm3 (1.2-5.4); Mean Corpuscular HGB Conc 35 % (30-34); Mean Corpuscular Volume 92 fl (79-97); Monocytes # (Auto) 0.7 K/mm3 (0.0-0.8); Monocytes % (Auto) 7.1 % (0.0-7.3); Platelet Count 144 K/mm3 (140-440); Red Blood Count 4.19 M/mm3 (3.65-5.03); Red Cell Distribution Width 13.1 % (13.2-15.2)
[2019-03-19 08:10] LABS: Alanine Aminotransferase 6 units/L (7-56); Albumin 3.9 g/dL (3.9-5); BUN/Creatinine Ratio 6; Blood Urea Nitrogen 4 mg/dL (7-17); Hemolysis Index 3
[2019-03-19] MEDS: PEPCID IV SCH (09:54)
[2019-03-19] MEDS: SODIUM CHLORIDE FLUSH SYRINGE 10 ML IV SCH (09:54)
--- NOTE | 2019-03-19 09:55 | Discharge Summary ---
Providers - Providers Date of Admission: 03/18/19 16:11 Attending physician: LASHONDA BORJAS MD [facility] Reason for admission: acute gastroenteritis Condition: Stable Pertinent studies: CT abdomen and pelvis IMPRESSION: Findings suggestive of a nonspecific colitis. Hospital course: Patient is 43 years old female with no significant past medical history presented to the ER complaining of nausea, vomiting and watery diarrhea for the last 4 days. She denied any fever or chills. No chest pain or shortness of breath.Feels weak and dehydrated.No fever or chills.First episode. Patient was admitted and was treated with IV fluids. Patient's symptoms were resolved. patient was hemodynamically stable and discharged home. Likely viral gastroenteritis. Disposition: DC-01 TO HOME OR SELFCARE Time spent for discharge: 32 minutes - Discharge Diagnoses (1) Abdominal pain Status: Acute (2) Dehydration Status: Acute (3) Intractable vomiting with nausea Status: Acute Qualifiers: Vomiting type: unspecified Qualified Code(s): R11.2 - Nausea with vomiting, unspecified Core Measure Documentation - Palliative Care Palliative Care/ Comfort Measures: Not Applicable - Core Measures Any of the following diagnoses?: none Exam - Constitutional Vitals: Temp Pulse Resp BP Pulse Ox 98.0 F 49 L 18 110/64 99 03/19/19 07:18 03/19/19 07:18 03/19/19 07:18 03/19/19 07:18 03/19/19 07:18 General appearance: Present: no acute distress, well-nourished - EENT Eyes: Present: PERRL ENT: hearing intact, clear oral mucosa - Neck Neck: Present: supple, normal ROM - Respiratory Respiratory effort: normal Respiratory: bilateral: CTA - Cardiovascular Heart Sounds: Present: S1 & S2. Absent: rub, click - Extremities Extremities: pulses symmetrical, No edema - Abdominal General gastrointestinal: Present: soft, non-tender, non-distended, normal bowel sounds - Integumentary Integumentary: Present: clear, warm, dry - Musculoskeletal Musculoskeletal: gait normal, strength equal bilaterally - Psychiatric Psychiatric: appropriate mood/affect, intact judgment & insight - Neurologic Neurologic: CNII-XII intact, moves all extremities - Allied Health Allied health notes reviewed: nursing Plan Activity: no restrictions Weight Bearing Status: Full Weight Bearing Diet: advance as tolerated [facility] with: [facility] [Primary Care Provider] - 3-5 Days Forms: Work/School Release Form Prescriptions: Dicyclomine [Bentyl] 20 mg PO QID #30 bottle Loperamide [Imodium] 2 mg PO Q2HR #12 capsule Ondansetron [Zofran ODT TAB] 4 mg PO Q8HR #12 tab.[email or web address]
[2019-03-19 12:17] VITALS: BP 118/81
== END 2019-03-19 12:50 | disposition home or self-care (01) | DRG 392 ==
LOC: ED 11:17 → 3A 16:11
PROVIDERS: ADMIT Internal Medicine; ATTEND Internal Medicine
DX: K52.9 Noninfective gastroenteritis and colitis, unspecified (principal); E86.0 Dehydration; Z79.899 Other long term (current) drug therapy
CPT/HCPCS: 36415; 74177; 80048; 80053; 80076; 81001; 81025; 83036; 83690; 85025; 85027; 87040; 96361; 96365; 96372; 96375; 96376; G0378; C9113; J0500; J1170; J1200; J1885; J2270; J2405; J2543; J2765; J7030; J7042; Q9967

== ENCOUNTER 2020-04-25 18:05 | Emergency (ER) | payer SELFPAY ==
--- NOTE | 2020-04-25 18:45 | Event Note ---
ED Screening Note ED Screening Note: n/v/d last night upper abd pain no fever no urinary sx no blood or pus in stool no sick contacts no recent travel states she ate a stir hair PMHx bradycardia, gastritis allergy: shellfish went to [place] today and already had a CT scan which was normal per pt states has been taking zofran denies ETOH +marijuana, two days ago This initial assessment/diagnostic orders/clinical plan/treatment(s) is/are subject to change based on patients health status, clinical progression and re- assessment by fellow clinical providers in the ED. Further treatment and workup at subsequent clinical providers discretion. Patient/guardian urged not to elope from the ED as their condition may be serious if not clinically assessed and managed. Initial orders include: labs, UA
[2020-04-25 18:48] VITALS: BP 166/89
[2020-04-25 19:27] LABS: Basophils % (Auto) 0.3 % (0.0-1.8); Hematocrit 43.5 % (30.3-42.9); Hemoglobin 14.8 gm/dl (10.1-14.3); Lymphocytes % (Auto) 8.1 % (13.4-35.0); Mean Corpuscular HGB Conc 34 % (30-34); Mean Corpuscular Volume 94 fl (79-97); Monocytes # (Auto) 0.4 K/mm3 (0.0-0.8); Monocytes % (Auto) 3.1 % (0.0-7.3); Platelet Count 162 K/mm3 (140-440); Red Blood Count 4.65 M/mm3 (3.65-5.03); Red Cell Distribution Width 13.4 % (13.2-15.2)
[2020-04-25 19:35] LABS: Bilirubin,Urine NEG (Negative); Blood,Urine NEG (Negative); Color,Urine Yellow (Yellow); Hyaline Casts,Urine 1 /LPF; Mucus,Urine 2+ /HPF; Urobilinogen,Urine < 2.0 mg/dL (<2.0)
[2020-04-25 19:37] LABS: Protein,Urine >500 mg/dL (Negative)
[2020-04-25 19:43] LABS: HCG Qualitative,Urine Negative (Negative)
[2020-04-25 19:46] LABS: Alanine Aminotransferase 9 units/L (7-56); Albumin 5.2 g/dL (3.9-5); Blood Urea Nitrogen 9 mg/dL (7-17); Calcium 10.4 mg/dL (8.4-10.2); Hemolysis Index 16
[2020-04-25 19:48] LABS: BUN/Creatinine Ratio 15
[2020-04-25] MEDS ORDERED: SODIUM CHLORIDE 0.9% 1000 ML 1,000 ML IV ONE (20:33)
[2020-04-25] MEDS ORDERED: HYOSCYAMINE SUBL 0.125 MG TAB SL ONE (20:33)
[2020-04-25] MEDS ORDERED: METOCLOPRAMIDE 10 MG/2 ML INJ IV STA (20:33)
[2020-04-25] MEDS ORDERED: FAMOTIDINE 20 MG/2 ML INJ IV ONE (20:33)
[2020-04-25] MEDS ORDERED: diphenhydrAMINE 50 MG/ML VIAL IV STA (20:33)
--- NOTE | 2020-04-25 21:33 | Cat Scan Report ---
CT abdomen pelvis wo con INDICATION: Lower ABD Pain. TECHNIQUE: All CT scans at this location are performed using the following dose modulation technique: Automated exposure control. CONTRAST: None. COMPARISON: None available. CT ABDOMEN: Evaluation of the parenchymal organs demonstrates no suspicious parenchymal lesion. Negat noemi for abdominal mass, fluid or inflammation. Evaluation the bowel demonstrates mild fullness at the level of the colon which is less prominent than the previous exam.. Contrast material is seen within the gallbladder. CT PELVIS: Negative for distal ureteral stone, pelvic fluid collection or inflammation. A small amoun t of pelvic free fluid is noted. IMPRESSION: 1. Improving colitis. 2. Vicarious excretion of contrast via the gallbladder. 3. No new inflammatory process. Signer Name: Elliot Urbano MD Signed: 04/25/2020 9:28 PM Workstation Name: [id number]
--- NOTE | 2020-04-25 22:59 | Emergency Department Report ---
ED Abdominal Pain HPI - General Chief Complaint: Abdominal Pain Stated Complaint: ABD PAIN/N/V Time Seen by Provider: 04/25/20 18:42 Source: patient Mode of arrival: Wheelchair Limitations: No Limitations - History of Present Illness Initial Comments: 44-year-old F [place] female with a past medical history of gastritis presents emergency department complaining of another flareup of the condition. She was seen at the emergency department multiple times in the last few days in multiple ERs for the same symptoms. CT scan did reveal severe colitis she was treated accordingly states she is been taking her medication but had a pain flareup she cannot emerge department for evaluation. She initially sought an evaluation a nearby hospital and received a CT scan normal labs but decided to follow-up here as well. She reports no hemoptysis no hematemesis no hematochezia reports no fever, chills, sweats pain is sharp burning and colicky worse with some foods MD Complaint: abdominal pain Severity: moderate Quality: cramping, sharp Consistency: constant Associated Symptoms: nausea. denies: vomiting, diarrhea, constipation, dysuria, hematochezia, hematuria, anorexia, syncope - Related Data Previous Rx's Medication Instructions Recorded Last Taken Type Dicyclomine [Bentyl] 20 mg PO QID #30 bottle 03/19/19 Unknown Rx Loperamide [Imodium] 2 mg PO Q2HR #12 capsule 03/19/19 Unknown Rx Ondansetron [Zofran ODT TAB] 4 mg PO Q8HR #12 tab.rapdis 03/19/19 Unknown Rx Hyoscyamine Subl [Levsin Sl 0.125 0.125 mg SL Q4HR PRN #20 tablet 04/25/20 Unknown Rx TAB] Allergies Allergy/AdvReac Type Severity Reaction Status Date / Time No Known Allergies Allergy Verified 03/18/19 11:18 ED Review of Systems ROS: Stated complaint: ABD PAIN/N/V Other details as noted in HPI Comment: All other systems reviewed and negative ED Past Medical Hx - Past Medical History Previous Medical History?: Yes Hx Arthritis: Yes (knees and hands) Hx Psychiatric Treatment: Yes (PTSD, anxiety, depression) Hx Asthma: Yes Hx HIV: No Additional medical history: Gastritis - Social History Smoking Status: Never Smoker Substance Use Type: None - Medications Home Medications: Home Medications Medication Instructions Recorded Confirmed Last Taken Type Dicyclomine [Bentyl] 20 mg PO QID #30 bottle 03/19/19 Unknown Rx Loperamide [Imodium] 2 mg PO Q2HR #12 capsule 03/19/19 Unknown Rx Ondansetron [Zofran ODT TAB] 4 mg PO Q8HR #12 tab.rapdis 03/19/19 Unknown Rx Hyoscyamine Subl [Levsin Sl 0.125 0.125 mg SL Q4HR PRN #20 tablet 04/25/20 Unknown Rx TAB] ED Physical Exam - General Limitations: No Limitations General appearance: alert, other (Patient is writhing around appears to be in pain) - Head Head exam: Present: atraumatic, normocephalic - Eye Eye exam: Present: normal appearance, PERRL, EOMI Pupils: Present: normal accommodation - ENT ENT exam: Present: normal exam, mucous membranes moist, TM's normal bilaterally - Neck Neck exam: Present: normal inspection, full ROM - Respiratory Respiratory exam: Present: normal lung sounds bilaterally. Absent: respiratory distress - Cardiovascular Cardiovascular Exam: Present: regular rate, normal rhythm. Absent: systolic murmur, diastolic murmur, rubs, gallop - GI/Abdominal GI/Abdominal exam: Present: soft, tenderness (Diffuse tenderness), normal bowel sounds. Absent: distended, guarding - Extremities Exam Extremities exam: Present: normal inspection - Back Exam Back exam: Present: normal inspection - Neurological Exam Neurological exam: Present: alert, oriented X3 - Psychiatric Psychiatric exam: Present: normal affect, normal mood - Skin Skin exam: Present: warm, dry, intact, normal color. Absent: rash ED Course Vital Signs 04/25/20 18:45 Temperature 99.1 F Pulse Rate 53 L Respiratory 20 Rate Blood Pressure 166/89 O2 Sat by Pulse 100 Oximetry ED Medical Decision Making - Lab Data Result diagrams: 04/25/20 19:00 04/25/20 19:00 - Radiology Data Radiology results: report reviewed [facility] [address] [place] [address] Cat Scan Report Signed Patient: OLAMIDE COONEY MR#: [id number] : 1975 Acct:[id number] Age/Sex: 44 / F ADM Date: 04/25/20 Loc: ED Attending Dr: Ordering Physician: ELYSSA DOAN Date of Service: 04/25/20 Procedure(s): CT abdomen pelvis wo con Accession Number(s): [id number] cc: ELYSSA DOAN CT abdomen pelvis wo con INDICATION: Lower ABD Pain. TECHNIQUE: All CT scans at this location are performed using the following dose modulation technique: Automated exposure control. CONTRAST: None. COMPARISON: None available. CT ABDOMEN: Evaluation of the parenchymal organs demonstrates no suspicious parenchymal lesion. Negative for abdominal mass, fluid or inflammation. Evaluation the bowel demonstrates mild fullness at the level of the colon which is less prominent than the previous exam.. Contrast material is seen within the gallbladder. CT PELVIS: Negative for distal ureteral stone, pelvic fluid collection or inflammation. A small amount of pelvic free fluid is noted. IMPRESSION: 1. Improving colitis. 2. Vicarious excretion of contrast via the gallbladder. 3. No new inflammatory process. Signer Name: Elliot Urbano MD Signed: 04/25/2020 9:28 PM Workstation Name: [id number] Transcribed By: ES Dictated By: Elliot Urbano MD Electronically Authenticated By: Elliot Urbano MD Signed Date/Time: 04/25/202127 DD/DT: 07 - Medical Decision Making This patient presents with abdominal pain of unclear etiology. A CT scan was performed to evaluate for potential causes of the abdominal pain, however, neither the clinical exam nor the CT has identified an emergent etiology for the abdominal pain. Specifically, given the benign exam, the laboratory studies, and unremarkable CT, I have a very low suspicion for appendicitis, ischemic bowel, bowel perforation, or any other life threatening disease. I have discussed with the patient the level of uncertainty with undifferentiated abdominal pain and clearly explained the need to follow-up as noted on the discharge instructions, or return to the Emergency Department immediately if the pain worsens, develops fever, persistent and uncontrollable vomiting, or for any new symptoms or concerns. Critical care attestation.: If time is entered above; I have spent that time in minutes in the direct care of this critically ill patient, excluding procedure time. ED Disposition Clinical Impression: Abdominal pain Disposition: DC-01 TO HOME OR SELFCARE Is pt being admited?: No Does the pt Need Aspirin: No Condition: Stable Instructions: Abdominal Pain (ED) Additional Instructions: CT scan shows that your colitis is significantly improving so please continue your current therapy Prescriptions: Hyoscyamine Subl [Levsin Sl 0.125 TAB] 0.125 mg SL Q4HR PRN #20 tablet PRN Reason: Spasms Referrals: PRIMARY CAREMD [Primary Care Provider] - 3-5 Days INA NOWAK MD [Staff Physician] - 3-5 Days [facility] [Provider Group] - 3-5 Days
== END 2020-04-25 23:50 | disposition home or self-care (01) ==
LOC: ED 18:05
DX: R10.9 Unspecified abdominal pain (principal); R11.0 Nausea; M19.91 Primary osteoarthritis, unspecified site; F32.9 Major depressive disorder, single episode, unspecified; J45.909 Unspecified asthma, uncomplicated; Z79.899 Other long term (current) drug therapy
CPT/HCPCS: 36415; 74176; 80053; 81001; 81025; 83690; 85025; 96374; 96375; 99284; J1200; J2765; J7030